=== PATIENT | female | born 1990 | race Caucasian/White ===

== ENCOUNTER 2018-09-02 01:35 | Emergency (ER) | payer OTHER ==
[~2018-09-02] VITALS: Ht 157.5 cm; Wt 56.7 kg
--- NOTE | 2018-09-02 01:42 | NUR ---
Pt ambulated in ER with steady gait. Pt c/o chest pain radiating to neck since last week. Pt states that the CP worsened while using her cellphone 20 mins PADDER rating it to be 9/10 . At this time, pt states that the CP is 1/10. Pt denies SOB, N/V/D. Respirations observed to be even and unlabored. Pt placed on monitor. Safe environment implemented.
--- NOTE | 2018-09-02 01:48 | NUR ---
Dr. Freeman at bedside for MSE
[2018-09-02 02:04] VITALS: BP 133/72
--- NOTE | 2018-09-02 02:04 | NUR ---
Patient discharged to home in stable conditon. Written and verbal after care instructions given. Patient verbalizes understanding of instructions.
== END 2018-09-02 02:05 | disposition home or self-care (01) ==
LOC: ER 01:39
DX: F41.9 Anxiety disorder, unspecified (principal); R07.89 Other chest pain; F17.200 Nicotine dependence, unspecified, uncomplicated
CPT/HCPCS: 93005; A4663